=== PATIENT | female | born 1990 | race Caucasian/White ===

== ENCOUNTER 2017-08-08 18:46 | Emergency (ER) | payer OTHER ==
[2017-08-08 19:58] VITALS: BP 134/87; PULSE 84; RESP 18; TEMP 98.5; O2SAT 99
[2017-08-08] MEDS ORDERED: Tdap Vaccine 0.5 ml Vial (10-64 yrs) IM ONE ×2 (20:07→20:47)
--- NOTE | 2017-08-08 20:21 | ED PDOC ---
HPI: Skin/Bite Injury Time Seen by Provider: 08/08/17 19:59 Chief Complaint (Nursing): Bite Chief Complaint (Provider): Bite History Per: Patient History/Exam Limitations: no limitations Current Symptoms Are (Timing): Still Present Location Of Injury: Right: Wrist Additional Complaint(s): 27 y/o female presents to the ED for evaluation of dog bite on right hand. Patient reports that she was walking her dog when another dog attacked her dog. She tried to grab her dog and the other dog bit her right arm. Reports that last tetanus shot was on 11/18. Denies any further medical complaints. PMD: none Past Medical History Reviewed: Historical Data, Nursing Documentation, Vital Signs Vital Signs: Last Vital Signs Temp 98.5 F 08/08/17 19:54 Pulse 84 08/08/17 19:54 Resp 18 08/08/17 19:54 BP 134/87 08/08/17 19:54 Pulse Ox 99 08/08/17 20:25 - Medical History PMH: No Chronic Diseases - Surgical History Surgical History: No Surg Hx - Family History Family History: States: No Known Family Hx - Living Arrangements Living Arrangements: Other - Social History Current smoker - smoking cessation education provided: No Alcohol: None Drugs: Denies - Home Medications Home Medications: Ambulatory Orders Medication Instructions Recorded Amoxicillin/Clavulanate [Augmentin 1 tab PO BID #20 tab 08/08/17 875 MG-125 MG] - Allergies Allergies/Adverse Reactions: Allergies Allergy/AdvReac Type Severity Reaction Status Date / Time No Known Allergies Allergy Verified 08/08/17 19:54 Review of Systems ROS Statement: Except As Marked, All Systems Reviewed And Found Negative (As per HPI, otherwise negative) Skin: Positive for: Other (og bite on right arm) Physical Exam - Reviewed Nursing Documentation Reviewed: Yes Vital Signs Reviewed: Yes - Physical Exam Appears: Positive for: Non-toxic, No Acute Distress Head Exam: Positive for: ATRAUMATIC, NORMAL INSPECTION, NORMOCEPHALIC Skin: Positive for: Normal Color, Warm, Dry Eye Exam: Positive for: Normal appearance ENT: Positive for: Normal ENT Inspection Neck: Positive for: Normal Cardiovascular/Chest: Negative for: Murmur Respiratory: Negative for: Accessory Muscle Use, Respiratory Distress Back: Positive for: Normal Inspection Extremity: Positive for: Swelling (Localized to region of bite on the right forearm), Other (Abrasion on right posterior wrist; no active bleeding noted). Negative for: Deformity Neurologic/Psych: Positive for: Alert, Oriented - ECG O2 Sat by Pulse Oximetry: 99 (RA) Pulse Ox Interpretation: Normal Medical Decision Making Medical Decision Making: Time: 20:07 Initial Impression: dog bite on right wrist Plan: Tetanus 0.5ml IM Dressing with antibiotic ointment applied. Scribe Attestation: Documented by Rasheeda Rocha acting as a scribe for BALJINDER Hawley. Scribe Attestation: All medical record entries made by the Scribe were at my direction and personally dictated by me. I have reviewed the chart and agree that the record accurately reflects my personal performance of the history, physical exam, medical decision making, and the department course for this patient. I have also personally directed, reviewed, and agree with the discharge instructions and disposition. Disposition - Clinical Impression Clinical Impression: Animal bite, Abrasion, Tetanus toxoid vaccination administered at current visit - Patient ED Disposition Is Patient to be Admitted: No Counseled Patient/Family Regarding: Diagnosis, Need For Followup, Rx Given - Disposition Disposition: Routine/Home Disposition Time: 21:09 Condition: GOOD Prescriptions: Amoxicillin/Clavulanate [Augmentin 875 MG-125 MG] 1 tab PO BID #20 tab Instructions: Animal and Human Bites Forms: [employer] (Thai)
== END 2017-08-08 21:21 | disposition home or self-care (01) ==
LOC: H.ER 18:46
DX: S61.451A Open bite of right hand, initial encounter (principal); S61.551A Open bite of right wrist, initial encounter; W54.0XXA Bitten by dog, initial encounter; Y93.K1 Activity, walking an animal